=== PATIENT | male | born 1980 | race Caucasian/White ===

== ENCOUNTER 2019-10-11 18:14 | Emergency (ER) | payer SELFPAY ==
[~2019-10-11] VITALS: Ht 177.8 cm; Wt 77.3 kg
[2019-10-11 18:23] VITALS: TEMP 98.2
[2019-10-11] MEDS ORDERED: ADVIL200 MG PO (18:37)
[2019-10-11 18:49] VITALS: BP 147/90; PULSE 90
[2019-10-11] MEDS ORDERED: BACTRIM DS 8001 TAB PO (18:53)
[2019-10-11] MEDS ORDERED: CEPHALEXIN500 M1 PO (18:53)
== END 2019-10-11 19:12 | disposition home or self-care (01) ==
LOC: COL.ER 18:14
DX: S61.012A Laceration without foreign body of left thumb without damage to nail, initial encounter (principal); L03.012 Cellulitis of left finger; W26.8XXA Contact with other sharp object(s), not elsewhere classified, initial encounter; Y92.009 Unspecified place in unspecified non-institutional (private) residence as the place of occurrence of the external cause